=== PATIENT | female | born 1970 | race Two or more races ===

== ENCOUNTER 2020-11-18 13:51 | Inpatient (IN) | payer OTHER ==
[2020-11-18 17:27] VITALS: BMI 26.1
[2020-11-18] MEDS ORDERED: NICOTINE POLACRILEX 2 MG GUM BUC PRN (18:51)
[2020-11-18] MEDS ORDERED: P-EPHED 60MG/TRIPROLIDI 2.5MG TABLET PO PRN (18:51)
[2020-11-18] MEDS ORDERED: BISMUTH SUBSALICYLATE 524 MG/30 ML UD PO PRN (18:51)
[2020-11-18] MEDS ORDERED: ONDANSETRON *ODT* 4 MG TABLET SL PRN (18:51)
[2020-11-18] MEDS ORDERED: ACETAMINOPHEN 325 MG TABLET (FP) PO PRN (18:51)
[2020-11-18] MEDS ORDERED: MAGNESIUM CITRATE 300 ML BOTTLE PO PRN (18:51)
[2020-11-18] MEDS ORDERED: MAG HYDROX/AL HYDROX/SIMETH 30 ML UNIT-DOSE CUP PO PRN (18:51)
[2020-11-18] MEDS ORDERED: MAGNESIUM HYDROX 2400MG/30ML ORAL SUSPENSION 30 ML CUP PO PRN (18:51)
[2020-11-18] MEDS ORDERED: MENTHOL/PHENOL 1 EACH UD MM PRN (18:51)
[2020-11-18] MEDS ORDERED: diazePAM 5 MG TABLET PO PRN (18:52)
[2020-11-18] MEDS ORDERED: cloNIDine HCL 0.1 MG TABLET PO PRN (21:50)
[2020-11-18] MEDS ORDERED: METHADONE HCL 10 MG TABLET (FOR DETOX USE ONLY) PO ONE (21:50)
[2020-11-18] MEDS: levETIRAcetam 500 MG TABLET (FP) PO SCH (23:01)
[2020-11-18] MEDS: diazePAM 5 MG TABLET PO SCH (23:01)
[2020-11-18] MEDS: MELATONIN 5 MG TABLETS PO SCH (23:02)
[2020-11-18] MEDS: THIAMINE HCL 100 MG TABLET (FP) PO SCH (23:02)
[2020-11-19] MEDS: ACETAMINOPHEN 325 MG TABLET (FP) PO PRN (05:51)
[2020-11-19] MEDS: diazePAM 5 MG TABLET PO SCH ×4 (05:51→22:53)
[2020-11-19] MEDS ORDERED: METHADONE HCL 10 MG TABLET (FOR DETOX USE ONLY) PO ONE (10:00)
[2020-11-19 10:42] LABS: HEMATOCRIT 34.5 % (32.4-45.2); HEMOGLOBIN 11.3 GM/dL (10.7-15.3); MCH 29.2 pg (25.7-33.7); MCHC 32.9 g/dl (32.0-36.0); MEAN CELL VOLUME 88.9 fl (80-96); MEAN PLT VOLUME 8.8 fl (7.5-11.1); PLATELET COUNT 298 K/MM3 (134-434); RBC 3.88 M/mm3 (3.60-5.2); RDW 18.3 % (11.6-15.6); WHITE BLOOD COUNT 7.9 K/mm3 (4.0-10.0)
[2020-11-19] MEDS: levETIRAcetam 500 MG TABLET (FP) PO SCH ×2 (11:14→22:51)
[2020-11-19] MEDS: PRENATAL VITAMINS W/ FOLIC ACID TABLET (FP) PO SCH (11:14)
[2020-11-19] MEDS: METHOCARBAMOL 500 MG TABLET PO PRN ×2 (11:15→22:54)
[2020-11-19] MEDS: IBUPROFEN 400 MG TABLET (FP) PO PRN ×2 (11:15→18:42)
[2020-11-19 11:23] LABS: POTASSIUM 3.5 mmol/L (3.5-5.1)
[2020-11-19 11:25] LABS: ALBUMIN 2.5 g/dl (3.4-5.0); BLOOD UREA NITROGEN 26.3 mg/dL (7-18); CALCIUM 8.2 mg/dL (8.5-10.1)
[2020-11-19 11:28] LABS: CREATININE 0.9 mg/dL (0.55-1.3)
[2020-11-19 11:30] LABS: BILIRUBIN,TOTAL 0.2 mg/dL (0.2-1); TOT PROT 5.9 g/dl (6.4-8.2)
[2020-11-19] MEDS ORDERED: METHADONE HCL 5 MG TABLET PO ONE (11:30)
[2020-11-19 11:45] LABS: HIV INTERPRETATION NEGATIVE (NEGATIVE)
[2020-11-19] MEDS ORDERED: MASKS NR ONE (11:54)
[2020-11-19] MEDS: SERTRALINE HCL 50 MG TABLET (FP) PO SCH (13:28)
[2020-11-19] MEDS ORDERED: QUEtiapine FUMARATE 100 MG TABLET (FP) PO SCH (22:00)
[2020-11-19] MEDS: THIAMINE HCL 100 MG TABLET (FP) PO SCH (22:51)
[2020-11-19] MEDS: GABAPENTIN 100 MG CAPSULE PO SCH (22:51)
[2020-11-19] MEDS: MELATONIN 5 MG TABLETS PO SCH (22:51)
[2020-11-19] MEDS: QUEtiapine FUMARATE 100 MG TABLET (FP) PO SCH (22:52)
[2020-11-19] MEDS: traZODone HCL 50 MG TABLET (FP) PO SCH (23:40)
[2020-11-20] MEDS: diazePAM 5 MG TABLET PO SCH ×3 (06:48→23:50)
[2020-11-20] MEDS ORDERED: METHADONE HCL 10 MG TABLET (FOR DETOX USE ONLY) PO ONE (10:00)
[2020-11-20] MEDS ORDERED: GABAPENTIN 300 MG CAPSULE PO SCH (10:00)
[2020-11-20] MEDS: levETIRAcetam 500 MG TABLET (FP) PO SCH ×2 (11:13→22:25)
[2020-11-20] MEDS: SERTRALINE HCL 50 MG TABLET (FP) PO SCH (11:13)
[2020-11-20] MEDS: GABAPENTIN 100 MG CAPSULE PO SCH ×2 (11:13→22:25)
[2020-11-20] MEDS: PRENATAL VITAMINS W/ FOLIC ACID TABLET (FP) PO SCH (11:13)
[2020-11-20] MEDS: METHOCARBAMOL 500 MG TABLET PO PRN (19:40)
[2020-11-20] MEDS: IBUPROFEN 400 MG TABLET (FP) PO PRN (19:41)
[2020-11-20] MEDS: QUEtiapine FUMARATE 100 MG TABLET (FP) PO SCH (22:24)
[2020-11-20] MEDS: MELATONIN 5 MG TABLETS PO SCH (22:24)
[2020-11-20] MEDS: traZODone HCL 50 MG TABLET (FP) PO SCH (22:25)
[2020-11-20] MEDS: THIAMINE HCL 100 MG TABLET (FP) PO SCH (22:26)
[2020-11-20] MEDS: ACETAMINOPHEN 325 MG TABLET (FP) PO PRN (22:27)
[2020-11-21] MEDS: diazePAM 5 MG TABLET PO SCH ×2 (07:01→21:20)
[2020-11-21] MEDS ORDERED: METHADONE HCL 5 MG TABLET (FOR DETOX USE ONLY) PO ONE (10:00)
[2020-11-21] MEDS ORDERED: METHADONE HCL 10 MG TABLET (FOR DETOX USE ONLY) PO ONE (10:00)
[2020-11-21] MEDS: PRENATAL VITAMINS W/ FOLIC ACID TABLET (FP) PO SCH (10:43)
[2020-11-21] MEDS: levETIRAcetam 500 MG TABLET (FP) PO SCH ×2 (10:43→22:34)
[2020-11-21] MEDS: GABAPENTIN 100 MG CAPSULE PO SCH ×2 (10:43→22:34)
[2020-11-21] MEDS: SERTRALINE HCL 50 MG TABLET (FP) PO SCH (10:44)
[2020-11-21] MEDS: IBUPROFEN 400 MG TABLET (FP) PO PRN (10:46)
[2020-11-21] MEDS: METHOCARBAMOL 500 MG TABLET PO PRN (10:46)
[2020-11-21] MEDS: traZODone HCL 50 MG TABLET (FP) PO SCH (22:34)
[2020-11-21] MEDS: THIAMINE HCL 100 MG TABLET (FP) PO SCH (22:34)
[2020-11-21] MEDS: MELATONIN 5 MG TABLETS PO SCH (22:35)
[2020-11-21] MEDS: QUEtiapine FUMARATE 100 MG TABLET (FP) PO SCH (22:35)
[2020-11-22] MEDS ORDERED: diazePAM 5 MG TABLET PO ONE (06:00)
[2020-11-22] MEDS: GABAPENTIN 100 MG CAPSULE PO SCH (11:27)
[2020-11-22] MEDS: levETIRAcetam 500 MG TABLET (FP) PO SCH (11:28)
[2020-11-22] MEDS: METHOCARBAMOL 500 MG TABLET PO PRN (11:28)
[2020-11-22] MEDS: IBUPROFEN 400 MG TABLET (FP) PO PRN (11:28)
[2020-11-22] MEDS: PRENATAL VITAMINS W/ FOLIC ACID TABLET (FP) PO SCH (11:28)
[2020-11-22] MEDS: SERTRALINE HCL 50 MG TABLET (FP) PO SCH (11:28)
[2020-11-22 14:12] VITALS: BP 141/96; PULSE 81; TEMP 97.3
== END 2020-11-22 15:12 | disposition other institution (70) | DRG 773 ==
LOC: YASAS 13:51 → Y6N 20:48
PROVIDERS: ADMIT Allergy & Immunology; ATTEND Allergy & Immunology
PROC: HZ2ZZZZ Detoxification Services for Substance Abuse Treatment (ICD-10-PCS; principal; 2020-11-18)
DX: F11.23 Opioid dependence with withdrawal (principal); F10.230 Alcohol dependence with withdrawal, uncomplicated; F14.20 Cocaine dependence, uncomplicated; F17.210 Nicotine dependence, cigarettes, uncomplicated; F19.282 Other psychoactive substance dependence with psychoactive substance-induced sleep disorder; F19.280 Other psychoactive substance dependence with psychoactive substance-induced anxiety disorder; F19.24 Other psychoactive substance dependence with psychoactive substance-induced mood disorder; G62.9 Polyneuropathy, unspecified; I10 Essential (primary) hypertension; J45.909 Unspecified asthma, uncomplicated; B35.3 Tinea pedis; R56.9 Unspecified convulsions; Z62.810 Personal history of physical and sexual abuse in childhood; Z98.2 Presence of cerebrospinal fluid drainage device; Z91.410 Personal history of adult physical and sexual abuse; Z59.0 Homelessness
CPT/HCPCS: 36415; 80053; 81025; 84520; 85027; 86780; 87389; 93005; 93010; C9803; U0003

== ENCOUNTER 2020-11-22 15:40 | Inpatient (IN) | payer OTHER ==
[2020-11-22] MEDS ORDERED: NICOTINE POLACRILEX 2 MG GUM BUC PRN (16:47)
[2020-11-22] MEDS ORDERED: ACETAMINOPHEN 325 MG TABLET (FP) PO PRN (16:47)
[2020-11-22] MEDS ORDERED: guaiFENesin 200 MG/10 ML 10 ML UNIT-DOSE CUPS PO PRN (16:47)
[2020-11-22] MEDS ORDERED: MAGNESIUM HYDROX 2400MG/30ML ORAL SUSPENSION 30 ML CUP PO PRN (16:47)
[2020-11-22] MEDS ORDERED: LOPERAMIDE HCL 2 MG CAPSULE PO PRN (16:47)
[2020-11-22] MEDS ORDERED: P-EPHED 60MG/TRIPROLIDI 2.5MG TABLET PO PRN (16:47)
[2020-11-22] MEDS ORDERED: MENTHOL/PHENOL 1 EACH UD MM PRN (16:47)
[2020-11-22] MEDS ORDERED: MAGNESIUM CITRATE 300 ML BOTTLE PO PRN (16:47)
[2020-11-22] MEDS ORDERED: MAG HYDROX/AL HYDROX/SIMETH 30 ML UNIT-DOSE CUP PO PRN (16:47)
[2020-11-22] MEDS ORDERED: ALBUTEROL SO4 HFA INHALER IH PRN (17:06)
[2020-11-22] MEDS: traZODone HCL 50 MG TABLET (FP) PO SCH (21:42)
[2020-11-22] MEDS: levETIRAcetam 500 MG TABLET (FP) PO SCH (21:42)
[2020-11-22] MEDS: THIAMINE HCL 100 MG TABLET (FP) PO SCH (21:42)
[2020-11-22] MEDS: hydrOXYzine PAMOATE 25 MG CAPSULE (FP) PO PRN (21:42)
[2020-11-22] MEDS: QUEtiapine FUMARATE 100 MG TABLET (FP) PO SCH (21:42)
[2020-11-22] MEDS: MELATONIN 5 MG TABLETS PO SCH (21:42)
[2020-11-23] MEDS: SERTRALINE HCL 50 MG TABLET (FP) PO SCH (11:38)
[2020-11-23] MEDS: QUEtiapine FUMARATE 100 MG TABLET (FP) PO SCH ×2 (11:38→21:03)
[2020-11-23] MEDS: amLODIPine BESYLATE 10 MG TABLET (FP) PO SCH (11:39)
[2020-11-23] MEDS: NICOTINE 7 MG/24 HOURS TOPICAL PATCH TD SCH (11:39)
[2020-11-23] MEDS: PRENATAL VITAMINS W/ FOLIC ACID TABLET (FP) PO SCH (11:39)
[2020-11-23] MEDS: levETIRAcetam 500 MG TABLET (FP) PO SCH ×2 (11:39→21:03)
[2020-11-23] MEDS: THIAMINE HCL 100 MG TABLET (FP) PO SCH (21:03)
[2020-11-23] MEDS: traZODone HCL 50 MG TABLET (FP) PO SCH (21:03)
[2020-11-23] MEDS: MELATONIN 5 MG TABLETS PO SCH (22:39)
[2020-11-24] MEDS: SERTRALINE HCL 50 MG TABLET (FP) PO SCH (10:41)
[2020-11-24] MEDS: QUEtiapine FUMARATE 100 MG TABLET (FP) PO SCH ×2 (10:41→21:18)
[2020-11-24] MEDS: NICOTINE 7 MG/24 HOURS TOPICAL PATCH TD SCH (10:41)
[2020-11-24] MEDS: levETIRAcetam 500 MG TABLET (FP) PO SCH ×2 (10:41→21:18)
[2020-11-24] MEDS: PRENATAL VITAMINS W/ FOLIC ACID TABLET (FP) PO SCH (10:41)
[2020-11-24] MEDS: amLODIPine BESYLATE 10 MG TABLET (FP) PO SCH (10:41)
[2020-11-24 16:45] LABS: EPI CELLS 22 /uL (0-25.1); HYALINE CASTS 1 /uL (0-3.1); PH,URINE 8.5 (5.0-8.0); URINE APPEARANCE CLEAR; URINE BACTERIA 326 /uL (0-1359); URINE BILIRUBIN NEGATIVE (NEGATIVE); URINE COLOR YELLOW; URINE GLUCOSE (UA) NEGATIVE (NEGATIVE); URINE KETONE NEGATIVE (NEGATIVE); URINE LEUK ESTERASE NEGATIVE (NEGATIVE); URINE NITRITE NEGATIVE (NEGATIVE); URINE PROTEIN NEGATIVE (NEGATIVE); URINE RBC 323 /uL (0-23.9); URINE UROBILINOGEN 0.2 mg/dL (0.2-1.0); URINE WBC 9 /uL (0-25.8)
[2020-11-24] MEDS: THIAMINE HCL 100 MG TABLET (FP) PO SCH (21:18)
[2020-11-24] MEDS: traZODone HCL 50 MG TABLET (FP) PO SCH (21:18)
[2020-11-24] MEDS: MELATONIN 5 MG TABLETS PO SCH (21:19)
[2020-11-25] MEDS: PRENATAL VITAMINS W/ FOLIC ACID TABLET (FP) PO SCH (10:59)
[2020-11-25] MEDS: amLODIPine BESYLATE 10 MG TABLET (FP) PO SCH (11:00)
[2020-11-25] MEDS: levETIRAcetam 500 MG TABLET (FP) PO SCH ×2 (11:00→21:32)
[2020-11-25] MEDS: NICOTINE 7 MG/24 HOURS TOPICAL PATCH TD SCH (11:00)
[2020-11-25] MEDS: QUEtiapine FUMARATE 100 MG TABLET (FP) PO SCH (11:00)
[2020-11-25] MEDS: SERTRALINE HCL 50 MG TABLET (FP) PO SCH (11:02)
[2020-11-25] MEDS: metroNIDAZOLE 250 MG TABLET PO SCH ×2 (14:55→21:32)
[2020-11-25] MEDS: THIAMINE HCL 100 MG TABLET (FP) PO SCH (21:32)
[2020-11-25] MEDS: MELATONIN 5 MG TABLETS PO SCH (21:33)
[2020-11-25] MEDS: QUEtiapine FUMARATE 50 MG TABLET PO SCH (21:33)
[2020-11-25] MEDS: traZODone HCL 50 MG TABLET (FP) PO SCH (21:33)
[2020-11-25] MEDS: GABAPENTIN 100 MG CAPSULE PO SCH (21:33)
[2020-11-26] MEDS: metroNIDAZOLE 250 MG TABLET PO SCH ×3 (06:49→21:13)
[2020-11-26] MEDS: GABAPENTIN 100 MG CAPSULE PO SCH ×2 (10:36→21:13)
[2020-11-26] MEDS: levETIRAcetam 500 MG TABLET (FP) PO SCH ×2 (10:36→21:13)
[2020-11-26] MEDS: NICOTINE 7 MG/24 HOURS TOPICAL PATCH TD SCH (10:36)
[2020-11-26] MEDS: PRENATAL VITAMINS W/ FOLIC ACID TABLET (FP) PO SCH (10:36)
[2020-11-26] MEDS: amLODIPine BESYLATE 10 MG TABLET (FP) PO SCH (10:36)
[2020-11-26] MEDS: SERTRALINE HCL 50 MG TABLET (FP) PO SCH (10:37)
[2020-11-26] MEDS: IBUPROFEN 400 MG TABLET (FP) PO PRN (11:40)
[2020-11-26] MEDS: CARBAMIDE PEROXIDE 6.5% OTIC 15 ML BOTTLE AD SCH ×2 (14:18→21:14)
[2020-11-26] MEDS: QUEtiapine FUMARATE 50 MG TABLET PO SCH (21:13)
[2020-11-26] MEDS: MELATONIN 5 MG TABLETS PO SCH (21:13)
[2020-11-26] MEDS: traZODone HCL 50 MG TABLET (FP) PO SCH (21:13)
[2020-11-26] MEDS: THIAMINE HCL 100 MG TABLET (FP) PO SCH (21:13)
[2020-11-27] MEDS ORDERED: PT OWN MED DRAWER 7, Y5N ONE (04:03)
[2020-11-27] MEDS: metroNIDAZOLE 250 MG TABLET PO SCH ×3 (07:42→22:09)
[2020-11-27] MEDS: SERTRALINE HCL 50 MG TABLET (FP) PO SCH (10:50)
[2020-11-27] MEDS: GABAPENTIN 100 MG CAPSULE PO SCH ×2 (10:50→22:10)
[2020-11-27] MEDS: levETIRAcetam 500 MG TABLET (FP) PO SCH ×2 (10:50→22:10)
[2020-11-27] MEDS: amLODIPine BESYLATE 10 MG TABLET (FP) PO SCH (10:50)
[2020-11-27] MEDS: PRENATAL VITAMINS W/ FOLIC ACID TABLET (FP) PO SCH (10:50)
[2020-11-27] MEDS: NICOTINE 7 MG/24 HOURS TOPICAL PATCH TD SCH (10:50)
[2020-11-27] MEDS: CARBAMIDE PEROXIDE 6.5% OTIC 15 ML BOTTLE AD SCH ×2 (10:51→22:09)
[2020-11-27] MEDS: IBUPROFEN 400 MG TABLET (FP) PO PRN ×2 (10:52→17:34)
[2020-11-27] MEDS ORDERED: MASKS NR ONE (20:03)
[2020-11-27] MEDS: hydrOXYzine PAMOATE 25 MG CAPSULE (FP) PO PRN (22:10)
[2020-11-27] MEDS: QUEtiapine FUMARATE 50 MG TABLET PO SCH (22:10)
[2020-11-27] MEDS: traZODone HCL 50 MG TABLET (FP) PO SCH (22:10)
[2020-11-27] MEDS: MELATONIN 5 MG TABLETS PO SCH (22:10)
[2020-11-27] MEDS: THIAMINE HCL 100 MG TABLET (FP) PO SCH (22:11)
[2020-11-28] MEDS: metroNIDAZOLE 250 MG TABLET PO SCH ×3 (06:45→22:35)
[2020-11-28] MEDS: GABAPENTIN 100 MG CAPSULE PO SCH ×3 (10:20→21:11)
[2020-11-28] MEDS: PRENATAL VITAMINS W/ FOLIC ACID TABLET (FP) PO SCH (11:08)
[2020-11-28] MEDS: amLODIPine BESYLATE 10 MG TABLET (FP) PO SCH (11:10)
[2020-11-28] MEDS: NICOTINE 7 MG/24 HOURS TOPICAL PATCH TD SCH (11:10)
[2020-11-28] MEDS: levETIRAcetam 500 MG TABLET (FP) PO SCH ×2 (11:10→21:12)
[2020-11-28] MEDS: SERTRALINE HCL 50 MG TABLET (FP) PO SCH (11:11)
[2020-11-28] MEDS: CARBAMIDE PEROXIDE 6.5% OTIC 15 ML BOTTLE AD SCH ×2 (12:02→22:09)
[2020-11-28] MEDS: THIAMINE HCL 100 MG TABLET (FP) PO SCH (21:12)
[2020-11-28] MEDS: MELATONIN 5 MG TABLETS PO SCH (21:12)
[2020-11-28] MEDS: QUEtiapine FUMARATE 50 MG TABLET PO SCH (21:12)
[2020-11-28] MEDS: traZODone HCL 50 MG TABLET (FP) PO SCH (22:36)
[2020-11-29] MEDS: metroNIDAZOLE 250 MG TABLET PO SCH ×3 (06:52→22:09)
[2020-11-29] MEDS: GABAPENTIN 100 MG CAPSULE PO SCH ×3 (06:53→22:09)
[2020-11-29] MEDS: PRENATAL VITAMINS W/ FOLIC ACID TABLET (FP) PO SCH (11:07)
[2020-11-29] MEDS: levETIRAcetam 500 MG TABLET (FP) PO SCH ×2 (11:08→22:09)
[2020-11-29] MEDS: NICOTINE 7 MG/24 HOURS TOPICAL PATCH TD SCH (11:08)
[2020-11-29] MEDS: amLODIPine BESYLATE 10 MG TABLET (FP) PO SCH (11:08)
[2020-11-29] MEDS: SERTRALINE HCL 50 MG TABLET (FP) PO SCH (11:09)
[2020-11-29] MEDS: QUEtiapine FUMARATE 50 MG TABLET PO SCH (11:10)
[2020-11-29] MEDS: CARBAMIDE PEROXIDE 6.5% OTIC 15 ML BOTTLE AD SCH ×2 (11:11→22:11)
[2020-11-29] MEDS: traZODone HCL 50 MG TABLET (FP) PO SCH (22:10)
[2020-11-29] MEDS: THIAMINE HCL 100 MG TABLET (FP) PO SCH (22:10)
[2020-11-29] MEDS: QUEtiapine FUMARATE 100 MG TABLET (FP) PO SCH (22:11)
[2020-11-30] MEDS: metroNIDAZOLE 250 MG TABLET PO SCH (07:08)
[2020-11-30] MEDS: GABAPENTIN 100 MG CAPSULE PO SCH ×3 (07:08→21:08)
[2020-11-30] MEDS: IBUPROFEN 400 MG TABLET (FP) PO PRN (07:08)
[2020-11-30] MEDS: NICOTINE 7 MG/24 HOURS TOPICAL PATCH TD SCH (13:24)
[2020-11-30] MEDS: QUEtiapine FUMARATE 50 MG TABLET PO SCH (13:24)
[2020-11-30] MEDS: levETIRAcetam 500 MG TABLET (FP) PO SCH ×2 (13:24→21:08)
[2020-11-30] MEDS: PRENATAL VITAMINS W/ FOLIC ACID TABLET (FP) PO SCH (13:24)
[2020-11-30] MEDS: amLODIPine BESYLATE 10 MG TABLET (FP) PO SCH (13:24)
[2020-11-30] MEDS: SERTRALINE HCL 50 MG TABLET (FP) PO SCH (13:25)
[2020-11-30] MEDS: THIAMINE HCL 100 MG TABLET (FP) PO SCH (21:08)
[2020-11-30] MEDS: traZODone HCL 50 MG TABLET (FP) PO SCH (21:08)
[2020-11-30] MEDS: QUEtiapine FUMARATE 100 MG TABLET (FP) PO SCH (21:08)
[2020-12-01] MEDS: GABAPENTIN 100 MG CAPSULE PO SCH ×3 (07:57→21:48)
[2020-12-01] MEDS: PRENATAL VITAMINS W/ FOLIC ACID TABLET (FP) PO SCH (09:32)
[2020-12-01] MEDS: levETIRAcetam 500 MG TABLET (FP) PO SCH ×2 (09:32→21:48)
[2020-12-01] MEDS: SERTRALINE HCL 50 MG TABLET (FP) PO SCH (09:33)
[2020-12-01] MEDS: QUEtiapine FUMARATE 50 MG TABLET PO SCH (09:33)
[2020-12-01] MEDS: amLODIPine BESYLATE 10 MG TABLET (FP) PO SCH (09:33)
[2020-12-01] MEDS: NICOTINE 7 MG/24 HOURS TOPICAL PATCH TD SCH (09:34)
[2020-12-01] MEDS: IBUPROFEN 400 MG TABLET (FP) PO PRN ×2 (10:06→16:34)
[2020-12-01] MEDS: QUEtiapine FUMARATE 100 MG TABLET (FP) PO SCH (21:47)
[2020-12-01] MEDS: traZODone HCL 50 MG TABLET (FP) PO SCH (21:48)
[2020-12-01] MEDS: THIAMINE HCL 100 MG TABLET (FP) PO SCH (21:48)
[2020-12-02] MEDS: GABAPENTIN 100 MG CAPSULE PO SCH ×3 (06:59→21:46)
[2020-12-02] MEDS: PRENATAL VITAMINS W/ FOLIC ACID TABLET (FP) PO SCH (10:08)
[2020-12-02] MEDS: SERTRALINE HCL 50 MG TABLET (FP) PO SCH (10:09)
[2020-12-02] MEDS: NICOTINE 7 MG/24 HOURS TOPICAL PATCH TD SCH (10:09)
[2020-12-02] MEDS: amLODIPine BESYLATE 10 MG TABLET (FP) PO SCH (10:09)
[2020-12-02] MEDS: levETIRAcetam 500 MG TABLET (FP) PO SCH ×2 (10:09→21:47)
[2020-12-02] MEDS: QUEtiapine FUMARATE 50 MG TABLET PO SCH (10:09)
[2020-12-02] MEDS: IBUPROFEN 400 MG TABLET (FP) PO PRN ×2 (10:10→21:48)
[2020-12-02] MEDS: traZODone HCL 50 MG TABLET (FP) PO SCH (21:46)
[2020-12-02] MEDS: THIAMINE HCL 100 MG TABLET (FP) PO SCH (21:47)
[2020-12-02] MEDS: QUEtiapine FUMARATE 100 MG TABLET (FP) PO SCH (21:47)
[2020-12-03] MEDS: GABAPENTIN 100 MG CAPSULE PO SCH ×3 (06:22→21:43)
[2020-12-03] MEDS: IBUPROFEN 400 MG TABLET (FP) PO PRN ×2 (06:23→21:44)
[2020-12-03] MEDS: PRENATAL VITAMINS W/ FOLIC ACID TABLET (FP) PO SCH (10:24)
[2020-12-03] MEDS: NICOTINE 7 MG/24 HOURS TOPICAL PATCH TD SCH (10:25)
[2020-12-03] MEDS: amLODIPine BESYLATE 10 MG TABLET (FP) PO SCH (10:25)
[2020-12-03] MEDS: SERTRALINE HCL 50 MG TABLET (FP) PO SCH (10:25)
[2020-12-03] MEDS: levETIRAcetam 500 MG TABLET (FP) PO SCH ×2 (10:25→21:43)
[2020-12-03] MEDS: QUEtiapine FUMARATE 50 MG TABLET PO SCH (10:25)
[2020-12-03] MEDS: THIAMINE HCL 100 MG TABLET (FP) PO SCH (21:43)
[2020-12-03] MEDS: QUEtiapine FUMARATE 100 MG TABLET (FP) PO SCH (21:43)
[2020-12-03] MEDS: traZODone HCL 50 MG TABLET (FP) PO SCH (21:43)
[2020-12-04] MEDS: GABAPENTIN 100 MG CAPSULE PO SCH ×3 (06:27→21:25)
[2020-12-04] MEDS: QUEtiapine FUMARATE 50 MG TABLET PO SCH (10:12)
[2020-12-04] MEDS: PRENATAL VITAMINS W/ FOLIC ACID TABLET (FP) PO SCH (10:12)
[2020-12-04] MEDS: amLODIPine BESYLATE 10 MG TABLET (FP) PO SCH (10:12)
[2020-12-04] MEDS: levETIRAcetam 500 MG TABLET (FP) PO SCH ×2 (10:12→21:17)
[2020-12-04] MEDS: NICOTINE 7 MG/24 HOURS TOPICAL PATCH TD SCH (10:13)
[2020-12-04] MEDS: IBUPROFEN 400 MG TABLET (FP) PO PRN (10:13)
[2020-12-04] MEDS: SERTRALINE HCL 50 MG TABLET (FP) PO SCH (10:13)
[2020-12-04] MEDS: traZODone HCL 50 MG TABLET (FP) PO SCH (21:17)
[2020-12-04] MEDS: QUEtiapine FUMARATE 100 MG TABLET (FP) PO SCH (21:17)
[2020-12-04] MEDS: THIAMINE HCL 100 MG TABLET (FP) PO SCH (21:17)
[2020-12-05] MEDS: GABAPENTIN 100 MG CAPSULE PO SCH (06:10)
[2020-12-05 07:18] VITALS: BP 113/76; PULSE 65; TEMP 96.8
[2020-12-05] MEDS: QUEtiapine FUMARATE 50 MG TABLET PO SCH (09:35)
[2020-12-05] MEDS: PRENATAL VITAMINS W/ FOLIC ACID TABLET (FP) PO SCH (09:35)
[2020-12-05] MEDS: levETIRAcetam 500 MG TABLET (FP) PO SCH (09:35)
[2020-12-05] MEDS: SERTRALINE HCL 50 MG TABLET (FP) PO SCH (09:35)
[2020-12-05] MEDS: amLODIPine BESYLATE 10 MG TABLET (FP) PO SCH (09:35)
[2020-12-05] MEDS: IBUPROFEN 400 MG TABLET (FP) PO PRN (09:37)
[2020-12-05] MEDS: NICOTINE 7 MG/24 HOURS TOPICAL PATCH TD SCH (09:39)
== END 2020-12-05 10:05 | disposition home or self-care (01) | DRG 772 ==
LOC: YASAS 15:40 → Y5N 15:43
PROVIDERS: ADMIT Allergy & Immunology; ATTEND Allergy & Immunology
PROC: HZ42ZZZ Group Counseling for Substance Abuse Treatment, Cognitive-Behavioral (ICD-10-PCS; principal; 2020-11-22)
DX: F11.20 Opioid dependence, uncomplicated (principal); F10.20 Alcohol dependence, uncomplicated; F14.20 Cocaine dependence, uncomplicated; F19.282 Other psychoactive substance dependence with psychoactive substance-induced sleep disorder; F19.280 Other psychoactive substance dependence with psychoactive substance-induced anxiety disorder; F19.24 Other psychoactive substance dependence with psychoactive substance-induced mood disorder; F41.1 Generalized anxiety disorder; F31.9 Bipolar disorder, unspecified; G62.9 Polyneuropathy, unspecified; G40.909 Epilepsy, unspecified, not intractable, without status epilepticus; M54.5 Low back pain; G89.29 Other chronic pain; B35.3 Tinea pedis; N39.0 Urinary tract infection, site not specified; B96.4 Proteus (mirabilis) (morganii) as the cause of diseases classified elsewhere; Z62.810 Personal history of physical and sexual abuse in childhood; Z91.410 Personal history of adult physical and sexual abuse; Z86.79 Personal history of other diseases of the circulatory system
CPT/HCPCS: 81003; 87086; 87186; C9803; U0003

== ENCOUNTER 2025-05-24 15:49 | Inpatient (IN) | payer OTHER ==
[2025-05-24] MEDS ORDERED: BENZONATATE 200 MG CAPSULE PO PRN (17:29)
[2025-05-24] MEDS ORDERED: BENZOCAINE/MENTHOL (CHLORASEPTIC ) LOZENGE MM PRN (17:29)
[2025-05-24] MEDS ORDERED: guaiFENesin 600 MG TABLET.ER (FP) PO PRN (17:29)
[2025-05-24] MEDS ORDERED: LOPERAMIDE HCL 2 MG CAPSULE PO PRN (17:29)
[2025-05-24] MEDS ORDERED: METHOCARBAMOL 500 MG TABLET PO PRN (17:29)
[2025-05-24] MEDS ORDERED: NALOXONE HCL 0.4 MG/ML VIAL IVPUSH PRN (17:29)
[2025-05-24] MEDS ORDERED: NICOTINE POLACRILEX 2 MG LOZENGE BC PRN (17:29)
[2025-05-24] MEDS ORDERED: NALOXONE (NARCAN) HCL 4 MG/0.1 ML SPRAY NS PRN (17:29)
[2025-05-24] MEDS ORDERED: NICOTINE POLACRILEX 2 MG GUM BUC PRN (17:29)
[2025-05-24] MEDS ORDERED: IBUPROFEN 400 MG TABLET (FP) PO PRN (17:29)
[2025-05-24] MEDS ORDERED: MAGNESIUM HYDROX 2400MG/30ML ORAL SUSPENSION 30 ML CUP PO PRN (17:29)
[2025-05-24] MEDS ORDERED: POLYETHYLENE GLYCOL (HEALTHYLAX) 3350 17 GM PACKET PO PRN (17:29)
[2025-05-24] MEDS ORDERED: MAG HYDROX/AL HYDROX/SIMETH 30 ML UNIT-DOSE CUP PO PRN (17:29)
[2025-05-24] MEDS: THIAMINE 100 MG TABLET PO SCH (21:06)
[2025-05-24] MEDS: MELATONIN 5 MG TABLETS PO SCH (21:06)
[2025-05-24] MEDS: hydrOXYzine PAMOATE 25 MG CAPSULE (FP) PO PRN (21:07)
[2025-05-24] MEDS: QUEtiapine FUMARATE 100 MG TABLET (FP) PO SCH (22:21)
[2025-05-24] MEDS: GABAPENTIN 400 MG CAPSULE PO SCH (22:22)
[2025-05-24] MEDS: LATANOPROST 0.005% OPHTH SOLN 2.5ML BOTTLE OD SCH (22:23)
[2025-05-25] MEDS: PRENATAL VITAMINS W/ FOLIC ACID TABLET (FP) PO SCH (09:54)
[2025-05-25] MEDS: SERTRALINE HCL 50 MG TABLET (FP) PO SCH (09:54)
[2025-05-25] MEDS: PANTOPRAZOLE 40 MG TABLET PO SCH (09:54)
[2025-05-25] MEDS: PRAZOSIN HCL 1 MG CAPSULE PO SCH (21:06)
[2025-05-26] MEDS: LOSARTAN POTASSIUM 50 MG TABLET PO ONE (13:04)
[2025-05-27] MEDS ORDERED: NIFEdipine E.R. 90 MG TABLET PO SCH (10:00)
[2025-05-27] MEDS: NIFEdipine E.R. 90 MG TABLET PO SCH (10:37)
[2025-05-27] MEDS: LOSARTAN POTASSIUM 50 MG TABLET PO SCH (10:38)
[2025-05-28] MEDS: ACETAMINOPHEN 325 MG TABLET (FP) PO PRN (10:14)
[2025-05-30] MEDS: IBUPROFEN 600 MG TABLET (FP) PO PRN (16:57)
[2025-06-02 12:17] LABS: ABSOLUTE IMMATURE GRANULOCYTES 0.01 x10^3/uL (0.0-0.031); BASOPHILS # 0.02 x10^3/uL (0.01-0.08); EOSINOPHIL % 5.5 % (0.7-5.8); EOSINOPHILS # 0.22 x10^3/uL (0.04-0.36); MCHC 29.8 g/dl (32.2-35.5); MEAN CELL VOLUME 97.5 fl (79.4-94.8); MEAN PLT VOLUME 10.4 fl (9.4-12.3); MONOCYTE # 0.53 x10^3/uL (0.24-0.86); MONOCYTE % 13.3 % (4.7-12.5); RDW 16.2 % (12.3-16.6)
[2025-06-02 12:44] LABS: GLUCOSE,RANDOM 87.0 mg/dL (74-106); TOT PROT 6.6 g/dl (6.4-8.2)
[2025-06-02 12:45] LABS: CO2 32.0 mmol/L (21-32)
[2025-06-02 12:47] LABS: ALK PHOS 68.0 U/L (40-150)
[2025-06-02 12:50] LABS: CREATININE 0.93 mg/dL (0.55-1.3); SGOT/AST 21.0 U/L (5-34); SGPT/ALT 14.0 U/L (0-55)
[2025-06-07] MEDS: TIOTROPIUM BROMIDE 2.5 MCG (SPIRIVA) RESPIMAT INHALER IH SCH (18:18)
[2025-06-07] MEDS: BUDESONIDE/FORMETEROL FUMARATE 160/4.5 mcg INHALER IH SCH (21:27)
[2025-06-09 12:26] LABS: GLUCOSE,RANDOM 105.0 mg/dL (74-106); TOT PROT 7.0 g/dl (6.4-8.2)
[2025-06-09 12:27] LABS: CO2 31.0 mmol/L (21-32)
[2025-06-09 12:28] LABS: ALK PHOS 72.0 U/L (40-150)
[2025-06-09 12:31] LABS: CREATININE 0.83 mg/dL (0.55-1.3); SGOT/AST 20.0 U/L (5-34); SGPT/ALT 16.0 U/L (0-55)
[2025-06-14] MEDS: MELATONIN 5 MG TABLETS PO SCH (21:15)
[2025-06-16] MEDS: BACLOFEN 10 MG TABLET (FP) PO SCH (21:26)
[2025-06-21 06:55] VITALS: RESP 18; TEMP 97.5
[2025-06-21 09:39] VITALS: BP 133/78; PULSE 87
== END 2025-06-21 10:10 | disposition home or self-care (01) | DRG 772 ==
LOC: YASAS 15:49 → Y5N 15:51
PROVIDERS: ADMIT Psychiatry & Neurology Pain Medicine; ATTEND Psychiatry & Neurology Pain Medicine
PROC: HZ42ZZZ Group Counseling for Substance Abuse Treatment, Cognitive-Behavioral (ICD-10-PCS; principal; 2025-05-24)
DX: F11.20 Opioid dependence, uncomplicated (principal); F14.20 Cocaine dependence, uncomplicated; I10 Essential (primary) hypertension; F17.210 Nicotine dependence, cigarettes, uncomplicated; G62.9 Polyneuropathy, unspecified; G40.909 Epilepsy, unspecified, not intractable, without status epilepticus; E83.51 Hypocalcemia; Z96.651 Presence of right artificial knee joint; Z91.199 Patient's noncompliance with other medical treatment and regimen due to unspecified reason; F41.9 Anxiety disorder, unspecified
CPT/HCPCS: 36415; 80053; 85025; J0475